=== PATIENT | male | born 1990 ===

== ENCOUNTER 2017-05-12 07:10 | Inpatient (IN) | payer MEDICAID ==
[2017-05-12 07:19] VITALS: RESP 18
--- NOTE | 2017-05-12 07:38 | C.PDOC ---
History Of Present Illness Patient is a 26 y/o male, with PMHx of asthma, presents to the ED requesting detox from heroin. Notes using heroin intranasally, and uses 4 bags a day. States last use was this morning at 3:00. Otherwise, denies any other drug use, SI, HI, chest pain, shortness of breath, or any other physical complaints at this time. Time Seen by Provider: 05/12/17 07:28 Chief Complaint (Nursing): Substance Abuse History Per: Patient History/Exam Limitations: no limitations Onset/Duration Of Symptoms: Gradual Current Symptoms Are (Timing): Still Present Suicide/Self Injury Attempted (Context): None Modifying Factor(s): Other (heroin) Severity: None Pain Scale Rating Of: 0 Associated Symptoms: denies: Suicidal Thoughts, Suicidal Plan Involuntary Hold By: None Additional History Per: Patient Past Medical History Reviewed: Historical Data, Nursing Documentation, Vital Signs Vital Signs: Last Vital Signs Temp 98.3 F 05/12/17 11:53 Pulse 68 05/12/17 11:53 Resp 18 05/12/17 11:53 BP 106/71 05/12/17 11:53 Pulse Ox 100 05/12/17 11:53 - Medical History PMH: Asthma Family History: States: No Known Family Hx - Social History Hx Alcohol Use: No Hx Substance Use: Yes - Immunization History Hx Tetanus Toxoid Vaccination: Yes Hx Influenza Vaccination: Yes Hx Pneumococcal Vaccination: Yes Review Of Systems Except As Marked, All Systems Reviewed And Found Negative. Constitutional: Negative for: Fever, Chills Cardiovascular: Negative for: Chest Pain, Palpitations Respiratory: Negative for: Shortness of Breath Gastrointestinal: Negative for: Nausea, Vomiting, Abdominal Pain Skin: Negative for: Rash, Bruising Neurological: Negative for: Headache, Dizziness Psych: Negative for: Suicidal ideation Physical Exam - Physical Exam Appears: Non-toxic, No Acute Distress Skin: Normal Color, Warm, Dry Head: Atraumatic, Normacephalic Eye(s): bilateral: Normal Inspection Oral Mucosa: Moist Neck: Supple Chest: Symmetrical Cardiovascular: Rhythm Regular, No Murmur Respiratory: Normal Breath Sounds, No Rales, No Rhonchi, No Wheezing Extremity: Bilateral: Atraumatic, Normal ROM Neurological/Psych: Oriented x3, Normal Speech ED Course And Treatment - Laboratory Results Result Diagrams: 05/12/17 08:43 05/12/17 08:43 O2 Sat by Pulse Oximetry: 100 (on RA) Pulse Ox Interpretation: Normal Progress Note: Blood work, UA ordered and reviewed. On re-evaluation, patient is resting comfortably, no acute distress. No physical complaints at this time. Medical Decision Making Medical Decision Making: Labs ordered and reviewed. In my clinical judgment patient is medically cleared and stable for psychiatric admission. 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 - Scribe Statement The provider has reviewed the documentation as recorded by the Scribe Terry Sanchez All medical record entries made by the Scribe were at my direction and personally dictated by me. I have reviewed the chart and agree that the record accurately reflects my personal performance of the history, physical exam, medical decision making, and the department course for this patient. I have also personally directed, reviewed, and agree with the discharge instructions and disposition. Decision To Admit - Pt Status Changed To: Hospital Disposition Of: Inpatient - Admit Certification Admit to Inpatient:: After my assessment, the patient will require hospitalization for at least two midnights. This is because of the severity of symptoms shown, intensity of services needed, and/or the medical risk in this patient being treated as an outpatient. - InPatient: Physician Admission Certification: I certify that this patient requires 2 or more midnights of care for the following reason:: Patient to be admitted for detox of opiate - . Bed Request Type: Detox Admitting Physician: Nito Rutledge Patient Diagnosis: Opiate dependence
[2017-05-12 08:46] LABS: BASO # 0.1 K/uL (0.0-0.2); BASO % 0.6 % (0.0-2.0); EOS # 0.2 K/uL (0.0-0.7); HEMATOCRIT 41.9 % (35.0-51.0); LYMPH # 2.2 K/uL (1.0-4.3); LYMPH % 19.7 % (20.0-40.0); MEAN CORPUSCULAR HEMOGLOBIN 27.9 pg (27.0-31.0); MEAN CORPUSCULAR HGB CONC 33.6 g/dL (33.0-37.0); MEAN PLATELET VOLUME 7.7 fL (7.2-11.7); MONO # 0.9 K/uL (0.0-0.8); MONO % 7.8 % (0.0-10.0); NRBC % 0.1 % (0.0-2.0); RED CELL DISTRIBUTION WIDTH 13.3 % (11.5-14.5); WHITE BLOOD COUNT 11.2 K/uL (4.8-10.8)
[2017-05-12 08:55] LABS: CHLORIDE 102 mmol/L (98-107); SODIUM 139 mmol/L (132-148)
[2017-05-12 08:57] LABS: GFR AFRICAN-AMERICAN > 60
[2017-05-12 08:58] LABS: ALB/GLOB RATIO 1.3 (1.0-2.1); ALKALINE PHOSPHATASE 51 U/L (38-126); ALT/SGPT 24 U/L (21-72); AST/SGOT 18 U/L (17-59); BILIRUBIN,TOTAL 0.6 mg/dL (0.2-1.3); BLOOD UREA NITROGEN 17 mg/dL (9-20); CALCIUM 9.1 mg/dl (8.6-10.4); CARBON DIOXIDE 27 mmol/L (22-30); GLUCOSE,RANDOM 130 mg/dL (75-110); TOTAL PROTEIN 6.8 g/dL (6.3-8.3)
[2017-05-12 08:59] LABS: ALCOHOL SERUM < 10 mg/dl (0-10)
[2017-05-12 09:18] LABS: POTASSIUM 3.4 mmol/L (3.6-5.2)
[2017-05-12 10:39] LABS: RBC URINE 2 /hpf (0-3); URINE BACTERIA RARE (<OCC); URINE BILIRUBIN NEGATIVE (NEGATIVE); URINE BLOOD NEGATIVE (NEGATIVE); URINE CALCIUM OXALATE CRYSTALS OCC /hpf (<OCC); URINE COLOR Yellow (YELLOW); URINE GLUCOSE (UA) NORMAL (Normal); URINE KETONE NEGATIVE (NEGATIVE); URINE LEUKOCYTE ESTERASE TRACE Leu/uL (Negative); URINE PROTEIN NEGATIVE (NEGATIVE); URINE UROBILINOGEN NORMAL mg/dL (0.2-1.0); WBC URINE 20 /hpf (0-5)
--- NOTE | 2017-05-12 12:52 | PCM.BM ---
<Earline De Luna F - Last Filed: 05/12/17 12:51> Treatment Plan Problems - Problems identified on initial assessmt Opioid use Date Initiated: 05/12/17 Time Initiated: 12:30 Assessment reference: NA Status: Active Treatment assets and liabiliti Patient Assests: cooperative, insightful, motivated, ADL independent, negotiates basic needs, good interpersonal skills Patient Liabilities: financial problems, relationship conflicts, substance abuse - Milieu Protocol Maintain good personal hygiene: daily Encourage regular showers, daily Remind patient to perform daily oral care Maintain personal safety: daily Educate patient to report safety concerns to staff, daily Monitor environment for contraband/sharps, every shift Monitor environment for contraband/sharps Medication safety: Monitor for expected outcome, potential side effects: daily, every shift, Assess barriers to learning: daily, every shift, Assess readiness for medication education: daily, every shift <Meaghan Pryor - Last Filed: 05/13/17 08:55> Family Contact Family involvement: Family/SO is involved Family contact: Patient agrees to contact - Goals for Treatment Patient goals for treatment: Transition from detox to [facility] work therapy program. Discharge/Continuing Care - Education Needs Education Needs: Patient Medication, Patient Diagnosis/Disease Process, Patient Coping Skills, Patient Anger Management skills, Patient Placement options, Patient Community resources - Discharge Discharge Criteria: Free of Suicidal thoughts, No longer exhibiting s/s of withdrawal, Reduction of target symptoms Discharge to:: Substance Abuse Rehab - Treatment Team Participation Patient/Family/SO Statement: 05/13/17 08:56 "I wanna go back to [facility] when I'm done". Discussed with Family/SO: Yes Was Patient/Family/SO present at Treatment Team Meeting: Yes <Nito Rutledge - Last Filed: 05/13/17 10:55> - Diagnosis (1) Opioid dependence Status: Acute Interventions: 05/13/17 10:55 Blaire do
[2017-05-12] MEDS ORDERED: Buprenorphine Hydrochloride 2 mg SL ONE ×2 (17:09→18:15)
[2017-05-13] MEDS: Buprenorphine Hydrochloride 2 mg SL SCH (09:31)
--- NOTE | 2017-05-13 17:46 | PCM.PSYCH ---
Initial Psychiatric Evaluation - Initial Psychiatric Evaluation Type of Admission: Voluntary Legal Status: Capacity Chief Complaint (in patient's own words): I need help for my opiate use History of Present Illness and Precipitating Events: Patient is a 26 years old, single, unemployed male with history of opiate use disorder and was admitted for the treatment of opiate withdrawal symptoms. Started to have using Percocet at the age of 21 years. Reported he was taking 8- 10 tablets daily and he was buying from [employer]. He started using heroin at the age of 24 years, was using 4-5 bags of heroindaily sniffing. Last use was yesterday. History of one detox at [facility] in July 2016. He of one rehabilitation at [facility]. Patient smokes half pack of cigarettes daily but is refusing to quit in patch. Patient is on probation for resistant rest. Patient was born in [place] has 12th grade of education not working since February 2017 last his job due to substance use. 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 Current Medications: Active Medications Generic Name Dose Route Start Last Admin Trade Name Freq PRN Reason Stop Dose Admin Acetaminophen 650 mg 05/12/17 13:19 Tylenol 325mg Tab PO Q6 PRN Pain, moderate (4-7) Buprenorphine HCl 6 mg 05/13/17 10:00 05/13/17 09:31 Subutex SL 05/16/17 09:59 6 mg DAILY KAYLA Administration Taper Clonidine HCl 0.1 mg 05/13/17 12:06 Catapres PO Q8 PRN COWS Score More or Equal to 5 Dicyclomine HCl 20 mg 05/13/17 14:00 Bentyl PO Q8H PRN Other Hydroxyzine HCl 25 mg 05/12/17 13:16 05/12/17 21:48 Atarax PO 25 mg Q8 PRN Administration Anxiety Loperamide HCl 2 mg 05/13/17 12:07 Imodium PO Q8 PRN Diarrhea Ondansetron HCl 4 mg 05/12/17 13:18 Zofran Tab PO Q6 PRN Nausea/Vomiting Trazodone HCl 50 mg 05/12/17 21:26 05/12/17 21:48 Desyrel PO 50 mg HS PRN Administration Insomnia Past Psychiatric History - Past Psychiatric History Previous Treatment History: Inpatient History of Abuse: None reported History of ETOH/Drug Use: See HPI History of Family Illness: None reported Pertinent Medical Hx (Current Medical&Sleep Prob, Allergies): Allergies Allergy/AdvReac Type Severity Reaction Status Date / Time seafood Allergy Uncoded 05/12/17 07:19 No Known Home Med 05/12/17 Review of Systems - Psychiatric Psychiatric: Other Mental Status Examination - Personal Presentation Personal Presentation: Looks stated age - Affect Affect: Other (Appropriate) - Motor Activity Motor Activity: Calm - Reliability in Providing Information Reliability in Providing Information: Fair - Speech Speech: Organized - Mood Mood: Depressed - Formal Thought Process Formal Thought Process: No Impairment - Hallucinations/Delusions Hallucinations: Other (None reported) Delusions: Other (None) - Obsessions/Compulsions Obsessions: None Compulsions: None - Cognitive Functions Orientation: Person, Place, Situation, Time Sensorium: Alert Attention/Concentration: Attentive Abstract Thinking: [place] Estimate of Intelligence: Average Judgement: Intact, as evidence by: Insight regarding need for hospitalization Memory: Recent intact, as evidence by: 3/3 object recall, Remote intact, as evidenced by: Ability to recall historical events - Risk Risk: Withdrawal, Diminished functioning - Strength & Assets Inventory Strength & Assets Inventory: Family support, Cooperative - Limitations Limitations: Other DSM 5 DX - DSM 5 DSM 5 Diagnosis: Opiate use disorder severe Opiate withdrawal - Recommended/Plan of Treatment Treatment Recommendations and Plan of Treatment: Patient education Supportive therapy Subutex taper for opiate withdrawal symptoms Other when necessary medications Patient wants to go to [facility] after discharge from the hospital for follow-up care Projected ELOS: 4-5 days - Smoking Cessation Smoking Cessation Initiated: Yes Reason for not providing: Patient refuses
[2017-05-14] MEDS: Buprenorphine Hydrochloride 2 mg SL SCH (10:07)
--- NOTE | 2017-05-14 17:44 | PCM.PYCHPN ---
Psychiatric Progress Note - Psychiatric Progress Note Patient seen today, length of contact: 15 minutes Patient Chief Complaint: I'm feeling better than the Problems Identified/Issues Discussed: Patient seen. Chart reviewed. Case discussed with the staff. Issues related to illness and treatment were discussed with the patient. Reported compliant with treatment with no adverse affects. Tolerating treatment very well. Feeling better. At the time of evaluation, patient was awake alert oriented 3, had no delusions, no auditory or visual hallucinations, no suicidal ideations or homicidal ideation. Medical Problems: None reported Diagnostic Results: Reviewed DSM 5 Symptoms Update: Improving with treatment Medication Change: No Medical Record Reviewed: Yes Mental Status Examination - Cognitive Function Orientation: Person, Place, Situation, Time Memory: Intact Attention: WNL Concentration: WNL Association: WN Fund of Knowledge: [facility] Decription of patient's judgement and insights: Fair - Mood Mood: Depressed (Less than before) - Affect Affect: Other (Appropriate) - Speech Speech: Appropriate - Formal Thought Process Formal Thought Process: No Impairment Psychotic Thoughts and Behaviors: None - Suicidal Ideation Suicidal Ideation: No - Homicidal Ideation Homicidal Ideation: No Goal/Treatment Plan - Goal/Treatment Plan Need for Continued Stay: Remain at risks for inpatient hospitalization, Discharge may exacerbated symptoms, Severe functional impairment Progress Toward Problem(s) and Goals/Treatment Plan: Patient education Supportive therapy Continue treatment as before Estimated Date of D/C: 05/15/17 - Smoking Cessation Smoking Cessation Initiated: No
[2017-05-15] MEDS: Buprenorphine Hydrochloride 2 mg SL SCH (09:14)
[2017-05-15 09:30] VITALS: TEMP 98.3; O2SAT 95
[2017-05-15 09:31] VITALS: BP 123/83; PULSE 76
--- NOTE | 2017-05-15 15:20 | PCM.PYCHDC ---
Mental Status Examination - Mental Status Examination Orientation: Person, Place, Situation, Time Memory: Intact Mood: Neutral Affect: Other (Appropriate) Speech: Appropriate Attention: WNL Concentration: WNL Association: WNL Fund of Knowledge: WNL Formal Thought Process: No Impairment Description of patient's judgement and insight: Fair Psychotic Thoughts and Behaviors: None Suicidal Ideation: No Current Homicidal Ideation?: No Discharge Summary - Discharge Note Reason for Hospitalization: Opiate use disorder severe Laboratory Data: Reviewed Consultations:: List each consultation separately and include: 1. Reason for request. 2. Findings. 3. Follow-up Summary of Hospital Course include:: 1. Description of specific treatment plan utilized for patients during their course of treatmen. 2. Summarize the time- course for resolution of acute symptoms and/or regressed behaviors. 3. Describe issues identified and worked on during hospitalization. 4. Describe medication utilized. 5. Describe medical problems identified and treated. 6. Reassessment of suicide risk Summary of Hospital Course: Patient is a 26 years old, single, unemployed male with history of opiate use disorder and was admitted for the treatment of opiate withdrawal symptoms. Started to have using Percocet at the age of 21 years. Reported he was taking 8- 10 tablets daily and he was buying from [employer]. He started using heroin at the age of 24 years, was using 4-5 bags of heroindaily sniffing. Last use was yesterday. History of one detox at [facility] in July 2016. He of one rehabilitation at [facility]. Patient smokes half pack of cigarettes daily but is refusing to quit in patch. Patient is on probation for resistant rest. Patient was born in [place] has 12th grade of education not working since February 2017 last his job due to substance use. 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 During his stay in the hospital patient was treated with Subutex detox protocol and other when necessary medications. Patient started feeling better with no withdrawal symptoms. Today patient was ready for discharge. At the time of evaluation and discharge, patient was awake alert oriented 3, had no delusions , no auditory or visual hallucinations, no suicidal ideations or homicidal ideation. Patient was discharged in a stable condition. - Diagnosis (1) Opioid dependence Status: Acute - Final Diagnosis (DSM 5) Condition upon Discharge: STABLE Disposition: REHAB FACILITY/REHAB UNIT Follow-up Treatment Plan: [facility] - Smoking Cessation Smoking Cessation Medication prescribed: No - Antipsychotic Medications Pt discharged on 2 or more routine antipsychotic medications: No
== END 2017-05-15 12:00 | DRG 745 ==
LOC: C.ER 07:10 → C.7D 11:15
PROC: HZ2ZZZZ Detoxification Services for Substance Abuse Treatment (ICD-10-PCS; principal; 2017-05-12)
DX: F11.23 Opioid dependence with withdrawal (principal); F17.210 Nicotine dependence, cigarettes, uncomplicated; J45.909 Unspecified asthma, uncomplicated